=== PATIENT | male | born 1945 | race Hispanic/Latino ===

== ENCOUNTER → 2021-12-30 11:01 | Outpatient (CLI) | payer MEDICARE, MEDICAID, SELFPAY ==
[2021-12-30 12:21] LABS: Hematocrit 34.7 % (41-53); Hemoglobin 11.9 g/dL (13.5-17.5); Mean Corpuscular HGB Conc 34.3 % (30-36); Mean Corpuscular Hemoglobin 32.6 PG (26-34); Platelet Count 212 X10^3/uL (150-400); Red Blood Cell Count 3.65 X10^6/uL (4.5-5.9); Red Cell Distribution Width 13.5 % (11.6-14.8); White Blood Cell Count 7.9 X10^3/uL (4.5-11.0)
[2021-12-30 12:45] LABS: Alanine Aminotransferase 18 IU/L (<50); Albumin 3.9 g/dL (3.5-5.0); Albumin Globulin Ratio 1.2 (1.0-2.8); Alkaline Phosphatase 79 U/L (38-126); Aspartate Aminotransferase 18 IU/L (17-59); BUN Creatinine Ratio 13.8 (6-22); Bilirubin Total 0.4 mg/dL (0.2-1.3); Blood Urea Nitrogen 12 mg/dL (9-20); Calcium 8.5 mg/dL (8.4-10.2); Carbon Dioxide 23 mmol/L (22-32); Chloride 105 mmol/L (98-107); Cholesterol 85 mg/dL (140-199); Estimated Glomerular Filt Rate > 60 mL/min (>60); Globulin 3.2 g/dL (1.7-4.1); Glucose 94 mg/dL (80-110); HDL Cholesterol 34 mg/dL (40-60); HEMOLYSIS < 15 (0-50); LDL Cholesterol Calculated 33 mg/dL (<100); Potassium 3.4 mmol/L (3.4-5.1); Sodium 139 mmol/L (137-145); Total Protein 7.1 g/dL (6.3-8.2); Triglycerides 92 mg/dL (35-150)
[2021-12-30 13:13] LABS: Prostate Specific Antigen 0.665 ng/mL (0.10-4.00)
[2021-12-30 13:14] LABS: TSH w/ Reflex to FT4 1.87 uIU/mL (0.47-4.68)
[2021-12-30 17:01] LABS: Microalbumin Urine Random 3.1 mg/dL (0-1.6)
[2021-12-30 17:04] LABS: Creatinine Urine Random 136.2 mg/dL; Microalbumi Creatinin Ratio Ur 22.7 ug/mg CR (<30)
== END ==
PROVIDERS: PCP Internal Medicine; Referring Provider Internal Medicine; Visit Provider Internal Medicine
DX: E11.42 Type 2 diabetes mellitus with diabetic polyneuropathy (principal); R97.20 Elevated prostate specific antigen [PSA]; E78.2 Mixed hyperlipidemia; I10 Essential (primary) hypertension; I25.10 Atherosclerotic heart disease of native coronary artery without angina pectoris; N13.8 Other obstructive and reflux uropathy; N40.1 Benign prostatic hyperplasia with lower urinary tract symptoms
CPT/HCPCS: 36415; 80053; 80061; 82043; 82570; 84153; 84443; 85027

== ENCOUNTER → 2022-04-26 12:06 | Outpatient (CLI) | payer MEDICARE, MEDICAID, SELFPAY ==
[2022-04-26 16:42] LABS: BUN Creatinine Ratio 11.8 (6-22); Blood Urea Nitrogen 10 mg/dL (9-20); Calcium 8.6 mg/dL (8.4-10.2); Carbon Dioxide 28 mmol/L (22-32); Chloride 104 mmol/L (98-107); Estimated Glomerular Filt Rate > 60 mL/min (>60); Glucose 112 mg/dL (80-110); HEMOLYSIS < 15 (0-50); Potassium 4.2 mmol/L (3.4-5.1); Sodium 142 mmol/L (137-145)
[2022-04-27 15:52] LABS: Hemoglobin A1C% w Est Avg Glu 6.1 % (4.0-6.0)
== END ==
PROVIDERS: PCP Internal Medicine; Referring Provider Internal Medicine; Visit Provider Internal Medicine
DX: E11.42 Type 2 diabetes mellitus with diabetic polyneuropathy (principal); I10 Essential (primary) hypertension
CPT/HCPCS: 36415; 80048; 83036

== ENCOUNTER → 2022-08-02 09:08 | Outpatient (CLI) | payer MEDICARE, MEDICAID, SELFPAY ==
[2022-08-02 11:05] LABS: Hematocrit 37.8 % (41-53); Mean Corpuscular HGB Conc 34.3 % (30-36); Mean Corpuscular Hemoglobin 31.7 PG (26-34); Mean Corpuscular Volume 92.5 fL (80-100); Platelet Count 243 X10^3/uL (150-400); Red Blood Cell Count 4.09 X10^6/uL (4.5-5.9); Red Cell Distribution Width 13.8 % (11.6-14.8)
[2022-08-02 11:29] LABS: Alanine Aminotransferase 24 IU/L (<50); Albumin Globulin Ratio 1.1 (1.0-2.8); Alkaline Phosphatase 96 U/L (38-126); Aspartate Aminotransferase 19 IU/L (17-59); BUN Creatinine Ratio 14.5 (6-22); Bilirubin Total 0.5 mg/dL (0.2-1.3); Blood Urea Nitrogen 12 mg/dL (9-20); Calcium 8.9 mg/dL (8.4-10.2); Carbon Dioxide 27 mmol/L (22-32); Chloride 103 mmol/L (98-107); Estimated Glomerular Filt Rate > 60 mL/min (>60); Globulin 3.5 g/dL (1.7-4.1); Glucose 105 mg/dL (80-110); HEMOLYSIS < 15 (0-50); Potassium 4.2 mmol/L (3.4-5.1); Sodium 142 mmol/L (137-145); Total Protein 7.5 g/dL (6.3-8.2)
[2022-08-02 11:33] LABS: Hemoglobin A1C% w Est Avg Glu 6.1 % (4.0-6.0)
== END ==
PROVIDERS: PCP Internal Medicine; Referring Provider Internal Medicine; Visit Provider Internal Medicine
DX: E11.42 Type 2 diabetes mellitus with diabetic polyneuropathy (principal); E78.2 Mixed hyperlipidemia; I10 Essential (primary) hypertension
CPT/HCPCS: 36415; 80053; 83036; 85027

== ENCOUNTER → 2023-05-11 14:59 | Outpatient (CLI) | payer MEDICARE, MEDICAID, SELFPAY ==
[2023-05-11 15:32] LABS: Hematocrit 34.8 % (41-53); Hemoglobin 11.8 g/dL (13.5-17.5); Mean Corpuscular Hemoglobin 32.4 PG (26-34); Mean Corpuscular Volume 95.3 fL (80-100); Platelet Count 257 X10^3/uL (150-400); Red Blood Cell Count 3.65 X10^6/uL (4.5-5.9); Red Cell Distribution Width 13.7 % (11.6-14.8); White Blood Cell Count 6.8 X10^3/uL (4.5-11.0)
[2023-05-11 15:41] LABS: Hemoglobin A1C% w Est Avg Glu 5.7 % (4.0-6.0)
[2023-05-11 16:07] LABS: Alanine Aminotransferase 41 IU/L (<50); Albumin 3.3 g/dL (3.5-5.0); Albumin Globulin Ratio 0.9 (1.0-2.8); Alkaline Phosphatase 179 U/L (38-126); Aspartate Aminotransferase 25 IU/L (17-59); BUN Creatinine Ratio 13.8 (6-22); Bilirubin Total 0.6 mg/dL (0.2-1.3); Blood Urea Nitrogen 8 mg/dL (9-20); Calcium 8.6 mg/dL (8.4-10.2); Carbon Dioxide 30 mmol/L (22-32); Chloride 102 mmol/L (98-107); Cholesterol 108 mg/dL (140-199); Estimated Glomerular Filt Rate > 60 mL/min (>60); Globulin 3.6 g/dL (1.7-4.1); Glucose 110 mg/dL (80-110); HDL Cholesterol 40 mg/dL (40-60); HEMOLYSIS < 15 (0-50); LDL Cholesterol Calculated 50 mg/dL (<100); Potassium 3.4 mmol/L (3.4-5.1); Sodium 140 mmol/L (137-145); Total Protein 6.9 g/dL (6.3-8.2); Triglycerides 91 mg/dL (35-150)
== END ==
PROVIDERS: PCP Internal Medicine; Referring Provider Internal Medicine; Visit Provider Internal Medicine
DX: E11.42 Type 2 diabetes mellitus with diabetic polyneuropathy (principal); I25.10 Atherosclerotic heart disease of native coronary artery without angina pectoris; E78.2 Mixed hyperlipidemia
CPT/HCPCS: 36415; 80053; 80061; 83036; 85027

== ENCOUNTER → 2023-07-05 14:53 | Outpatient (CLI) | payer MEDICARE, MEDICAID, SELFPAY ==
[2023-07-05 17:44] LABS: Creatinine Urine Random 121.7 mg/dL
[2023-07-05 17:48] LABS: Microalbumi Creatinin Ratio Ur 38.6 ug/mg CR (<30); Microalbumin Urine Random 4.7 mg/dL (0-1.6)
[2023-07-07 05:39] LABS: Fecal Immunochemical Test Negative (Negative)
== END ==
PROVIDERS: PCP Internal Medicine; Referring Provider Internal Medicine; Visit Provider Internal Medicine
DX: Z12.11 Encounter for screening for malignant neoplasm of colon (principal); E11.42 Type 2 diabetes mellitus with diabetic polyneuropathy; E78.2 Mixed hyperlipidemia
CPT/HCPCS: 82043; 82274; 82570

== ENCOUNTER → 2023-11-08 11:14 | Outpatient (CLI) | payer MEDICARE, MEDICAID, SELFPAY ==
[2023-11-08 12:31] LABS: Hemoglobin A1C% w Est Avg Glu 6.5 % (4.0-6.0)
[2023-11-08 13:11] LABS: BUN Creatinine Ratio 17.1 (6-22); Blood Urea Nitrogen 12 mg/dL (9-20); Calcium 8.4 mg/dL (8.4-10.2); Carbon Dioxide 29 mmol/L (22-32); Chloride 105 mmol/L (98-107); Estimated Glomerular Filt Rate > 60 mL/min (>60); Glucose 137 mg/dL (80-110); HEMOLYSIS < 15 (0-50); Potassium 4.1 mmol/L (3.4-5.1); Sodium 139 mmol/L (137-145)
[2023-11-08 13:36] LABS: Prostate Specific Antigen 0.808 ng/mL (0.10-4.00)
== END ==
PROVIDERS: PCP Internal Medicine; Referring Provider Internal Medicine; Visit Provider Internal Medicine
DX: N40.1 Benign prostatic hyperplasia with lower urinary tract symptoms (principal); N13.8 Other obstructive and reflux uropathy; E11.59 Type 2 diabetes mellitus with other circulatory complications
CPT/HCPCS: 36415; 80048; 83036; 84153

== ENCOUNTER → 2024-06-08 08:55 | Outpatient (CLI) | payer MEDICARE, MEDICAID, SELFPAY ==
[2024-06-08 09:47] LABS: Hemoglobin A1C% w Est Avg Glu 6.1 % (4.0-6.0)
[2024-06-08 10:00] LABS: Aspartate Aminotransferase 22 IU/L (17-59); BUN Creatinine Ratio 15.6 (6-22); Blood Urea Nitrogen 12 mg/dL (9-20); Calcium 8.5 mg/dL (8.4-10.2); Carbon Dioxide 26 mmol/L (22-32); Chloride 103 mmol/L (98-107); Cholesterol 86 mg/dL (140-199); Estimated Glomerular Filt Rate > 60 mL/min (>60); Glucose 132 mg/dL (80-110); HDL Cholesterol 38 mg/dL (40-60); HEMOLYSIS < 15 (0-50); LDL Cholesterol Calculated 28 mg/dL (<100); Sodium 135 mmol/L (137-145); Triglycerides 99 mg/dL (35-150)
== END ==
PROVIDERS: PCP Internal Medicine; Referring Provider Internal Medicine; Visit Provider Internal Medicine
DX: E11.59 Type 2 diabetes mellitus with other circulatory complications (principal); E78.2 Mixed hyperlipidemia
CPT/HCPCS: 36415; 80048; 80061; 83036; 84450

== ENCOUNTER → 2024-08-20 15:57 | Outpatient (CLI) | payer MEDICARE, MEDICAID, SELFPAY ==
[2024-08-20 17:07] LABS: BUN Creatinine Ratio 11.1 (6-22); Blood Urea Nitrogen 8 mg/dL (9-20); Calcium 8.6 mg/dL (8.4-10.2); Carbon Dioxide 24 mmol/L (22-32); Chloride 105 mmol/L (98-107); Estimated Glomerular Filt Rate > 60 mL/min (>60); Glucose 93 mg/dL (80-110); HEMOLYSIS < 15 (0-50); Potassium 3.7 mmol/L (3.4-5.1); Sodium 139 mmol/L (137-145)
[2024-08-21 14:56] LABS: Rubella Antibody IgG 95.9 IU/mL (>15)
[2024-08-22 08:11] LABS: Rubeola Measles IgG > 300.0 AU/mL (Immune >16.4)
[2024-08-22 12:09] LABS: Mumps Virus IgG Antibody >300.0 AU/mL (Immune >10.9)
== END ==
PROVIDERS: PCP Internal Medicine; Referring Provider Internal Medicine; Visit Provider Internal Medicine
DX: E11.42 Type 2 diabetes mellitus with diabetic polyneuropathy (principal); Z20.9 Contact with and (suspected) exposure to unspecified communicable disease
CPT/HCPCS: 80048; 86735; 86762; 86765

== ENCOUNTER → 2024-11-20 16:17 | Outpatient (CLI) | payer MEDICARE, MEDICAID, SELFPAY ==
[2024-11-20 17:26] LABS: BUN Creatinine Ratio 11.3 (6-22); Blood Urea Nitrogen 6 mg/dL (9-20); Calcium 8.3 mg/dL (8.4-10.2); Carbon Dioxide 25 mmol/L (22-32); Chloride 105 mmol/L (98-107); Estimated Glomerular Filt Rate > 60 mL/min (>60); Glucose 96 mg/dL (70-99); HEMOLYSIS < 15 (0-50); Potassium 3.6 mmol/L (3.4-5.1); Sodium 137 mmol/L (137-145)
[2024-11-20 17:30] LABS: Hemoglobin A1C% w Est Avg Glu 5.8 % (4.0-6.0)
[2024-11-20 17:57] LABS: Prostate Specific Antigen 1.19 ng/mL (0.10-4.00)
[2024-11-20 19:28] LABS: Creatinine Urine Random 82.03 mg/dL
[2024-11-20 19:33] LABS: Microalbumin Urine Random 3.3 mg/dL (0-1.6)
== END ==
PROVIDERS: PCP Internal Medicine; Referring Provider Internal Medicine; Visit Provider Internal Medicine
DX: E11.59 Type 2 diabetes mellitus with other circulatory complications (principal); N40.1 Benign prostatic hyperplasia with lower urinary tract symptoms; N13.8 Other obstructive and reflux uropathy
CPT/HCPCS: 36415; 80048; 82043; 82570; 83036; 84153

== ENCOUNTER → 2025-02-14 11:24 | Outpatient (CLI) | payer MEDICARE, MEDICAID, SELFPAY | PROVIDERS: PCP Internal Medicine; Referring Provider Internal Medicine; Visit Provider Internal Medicine | DX: Z86.0100 Personal history of colon polyps, unspecified (principal) | CPT/HCPCS: 82274 ==

== ENCOUNTER → 2025-05-20 15:58 | Outpatient (CLI) | payer MEDICARE, MEDICAID, SELFPAY ==
[2025-05-20 16:41] LABS: Hematocrit 37.2 % (41-53); Hemoglobin 13.0 g/dL (13.5-17.5); Mean Corpuscular HGB Conc 35.0 % (30-36); Mean Corpuscular Hemoglobin 33.3 PG (26-34); Mean Corpuscular Volume 95.0 fL (80-100); Platelet Count 207 X10^3/uL (150-400)
[2025-05-20 17:03] LABS: Blood Urea Nitrogen 9 mg/dL (9-20); Calcium 8.5 mg/dL (8.4-10.2); Carbon Dioxide 29 mmol/L (22-32); Chloride 103 mmol/L (98-107); Cholesterol 96 mg/dL (140-199); Estimated Glomerular Filt Rate > 60 mL/min (>60); Glucose 117 mg/dL (70-99); HDL Cholesterol 48 mg/dL (40-60); HEMOLYSIS < 15 (0-50); Potassium 3.5 mmol/L (3.4-5.1); Sodium 137 mmol/L (137-145); Triglycerides 82 mg/dL (35-150)
[2025-05-20 17:32] LABS: Hemoglobin A1C% w Est Avg Glu 5.5 % (4.0-6.0)
[2025-05-20 17:50] LABS: TSH w/ Reflex to FT4 2.26 uIU/mL (0.47-4.68)
[2025-05-20 23:26] LABS: Vitamin B12 Reflex MMA if <400 273 pg/mL (239-931)
== END ==
PROVIDERS: PCP Internal Medicine; Referring Provider Internal Medicine; Visit Provider Internal Medicine
DX: E78.2 Mixed hyperlipidemia (principal); E11.59 Type 2 diabetes mellitus with other circulatory complications; I25.810 Atherosclerosis of coronary artery bypass graft(s) without angina pectoris; E53.8 Deficiency of other specified B group vitamins
CPT/HCPCS: 36415; 80048; 80061; 82607; 83036; 83921; 84443; 84450; 85027